=== PATIENT | male | born 1975 | race Caucasian/White ===

== ENCOUNTER → 2018-05-25 | Outpatient (CLI) | payer OTHER | LOC: M.WC 08:00 | DX: I87.311 Chronic venous hypertension (idiopathic) with ulcer of right lower extremity (principal); L97.812 Non-pressure chronic ulcer of other part of right lower leg with fat layer exposed; Z87.891 Personal history of nicotine dependence ==

== ENCOUNTER → 2018-06-01 | Outpatient (CLI) | payer OTHER | LOC: M.WC 05:03 | DX: I87.311 Chronic venous hypertension (idiopathic) with ulcer of right lower extremity (principal); L97.811 Non-pressure chronic ulcer of other part of right lower leg limited to breakdown of skin; Z87.891 Personal history of nicotine dependence ==

== ENCOUNTER → 2018-06-08 | Outpatient (CLI) | payer OTHER | LOC: M.WC 03:14 | DX: I87.311 Chronic venous hypertension (idiopathic) with ulcer of right lower extremity (principal); L97.811 Non-pressure chronic ulcer of other part of right lower leg limited to breakdown of skin; Z87.891 Personal history of nicotine dependence; Z96.649 Presence of unspecified artificial hip joint ==

== ENCOUNTER → 2018-10-28 | Outpatient (CLI) | payer OTHER | LOC: M.WC 10:00 | DX: I87.311 Chronic venous hypertension (idiopathic) with ulcer of right lower extremity (principal); L97.812 Non-pressure chronic ulcer of other part of right lower leg with fat layer exposed; Z87.891 Personal history of nicotine dependence ==

== ENCOUNTER → 2018-11-04 | Outpatient (CLI) | payer OTHER | LOC: M.WC 05:01 | DX: I87.311 Chronic venous hypertension (idiopathic) with ulcer of right lower extremity (principal); L97.812 Non-pressure chronic ulcer of other part of right lower leg with fat layer exposed; Z87.891 Personal history of nicotine dependence ==

== ENCOUNTER → 2018-11-09 | Outpatient (CLI) | payer OTHER | LOC: M.WC 05:06 | DX: I87.311 Chronic venous hypertension (idiopathic) with ulcer of right lower extremity (principal); L97.811 Non-pressure chronic ulcer of other part of right lower leg limited to breakdown of skin; Z87.891 Personal history of nicotine dependence ==

== ENCOUNTER → 2018-11-18 | Outpatient (CLI) | payer OTHER | LOC: M.WC 00:38 | DX: I87.311 Chronic venous hypertension (idiopathic) with ulcer of right lower extremity (principal); L97.818 Non-pressure chronic ulcer of other part of right lower leg with other specified severity; Z87.891 Personal history of nicotine dependence ==